=== PATIENT | female | born 1980 | race Caucasian/White ===

== ENCOUNTER 2022-09-11 09:43 | Emergency (ER) | payer OTHER ==
[2022-09-11 09:55] VITALS: BP 113/60; PULSE 75; RESP 16; TEMP 97.8; BMI 42.0
[2022-09-11 11:09] LABS: BASO % 0.3 % (0-2.0); HEMATOCRIT 39.5 % (32.4-45.2); HEMOGLOBIN 13.1 GM/dL (10.7-15.3); MCH 29.7 pg (25.7-33.7); MCHC 33.1 g/dl (32.0-36.0); MEAN CELL VOLUME 89.6 fl (80-96); MEAN PLT VOLUME 8.9 fl (7.5-11.1); MONO % 6.9 % (3.8-10.2); NEUT % 59.8 % (42.8-82.8); PLATELET COUNT 246 10^3/uL (134-434); RBC 4.41 M/mm3 (3.60-5.2); RDW 13.6 % (11.6-15.6); WHITE BLOOD COUNT 6.9 K/mm3 (4.0-10.0)
[2022-09-11 11:11] LABS: EPI CELLS >36 /uL (0-25.1); HYALINE CASTS 0 /uL (0-3.1); URINE APPEARANCE CLEAR; URINE BACTERIA 954 /uL (0-1359); URINE BILIRUBIN NEGATIVE (NEGATIVE); URINE COLOR YELLOW; URINE GLUCOSE (UA) NEGATIVE (NEGATIVE); URINE KETONE NEGATIVE (NEGATIVE); URINE LEUK ESTERASE 2+ (NEGATIVE); URINE NITRITE NEGATIVE (NEGATIVE); URINE PROTEIN NEGATIVE (NEGATIVE); URINE RBC 19 /uL (0-23.9); URINE UROBILINOGEN 0.2 mg/dL (0.2-1.0); URINE WBC 92 /uL (0-25.8)
[2022-09-11 11:53] LABS: POTASSIUM 3.8 mmol/L (3.5-5.1)
[2022-09-11 11:55] LABS: BLOOD UREA NITROGEN 7.7 mg/dL (7-18); CALCIUM 9.3 mg/dL (8.5-10.1)
[2022-09-11 11:56] LABS: ALBUMIN 3.7 g/dl (3.4-5.0)
[2022-09-11 11:58] LABS: BILIRUBIN,DIRECT 0.1 mg/dL (0.0-0.2)
[2022-09-11 11:59] LABS: CREATININE 0.6 mg/dL (0.55-1.3)
[2022-09-11 12:00] LABS: BILIRUBIN,TOTAL 0.6 mg/dL (0.2-1); TOT PROT 7.1 g/dl (6.4-8.2)
[2022-09-11 12:21] LABS: HCG,QUALITATIVE URINE Positive
== END 2022-09-11 14:24 | disposition home or self-care (01) ==
LOC: JER 09:43
DX: O20.9 Hemorrhage in early pregnancy, unspecified (principal); Z3A.01 Less than 8 weeks gestation of pregnancy
CPT/HCPCS: 36415; 76815-TC; 80048; 80076; 81003; 84703; 85025; 86850; 86900; 86901; 87086; 99284-25

== ENCOUNTER 2022-12-06 09:29 | Emergency (ER) | payer OTHER ==
[2022-12-06 09:38] VITALS: BP 135/66; PULSE 82; RESP 20; TEMP 98.1; BMI 43.9
[2022-12-06 11:04] LABS: PH,URINE 7.5 (5.0-8.0); URINE APPEARANCE CLEAR; URINE BILIRUBIN NEGATIVE (NEGATIVE); URINE COLOR YELLOW; URINE GLUCOSE (UA) NEGATIVE (NEGATIVE); URINE KETONE NEGATIVE (NEGATIVE); URINE LEUK ESTERASE NEGATIVE (NEGATIVE); URINE NITRITE NEGATIVE (NEGATIVE); URINE PROTEIN NEGATIVE (NEGATIVE); URINE UROBILINOGEN 0.2 mg/dL (0.2-1.0)
== END 2022-12-06 15:08 | disposition home or self-care (01) ==
LOC: JER 09:29
DX: N89.8 Other specified noninflammatory disorders of vagina (principal)
CPT/HCPCS: 36415; 76815-TC; 81003; 87070; 87086; 87205; 87491; 87591; 87661; 99284-25

== ENCOUNTER 2023-03-16 12:03 | Emergency (ER) | payer OTHER ==
[2023-03-16 12:20] VITALS: BMI 45.4
[2023-03-16 15:41] LABS: BASO % 0.8 % (0-2.0); EOS % 0.7 % (0-4.5); HEMATOCRIT 36.8 % (32.4-45.2); HEMOGLOBIN 12.3 GM/dL (10.7-15.3); LYMPH % 31.5 % (8-40); MCH 29.3 pg (25.7-33.7); MCHC 33.4 g/dl (32.0-36.0); MEAN CELL VOLUME 87.8 fl (80-96); MEAN PLT VOLUME 8.7 fl (7.5-11.1); MONO % 8.3 % (3.8-10.2); NEUT % 58.7 % (42.8-82.8); PLATELET COUNT 252 10^3/uL (134-434); RBC 4.19 M/mm3 (3.60-5.2); RDW 13.5 % (11.6-15.6); WHITE BLOOD COUNT 6.3 K/mm3 (4.0-10.0)
[2023-03-16 15:48] LABS: INR 0.9 (0.83-1.09); PROTHROMBIN TIME (PATIENT) 10.5 SEC (9.7-13.0)
[2023-03-16 15:51] LABS: ACTIVATED PTT 28.1 SECONDS (25.2-36.5)
[2023-03-16 16:22] LABS: URINE APPEARANCE CLOUDY; URINE BILIRUBIN 1+ (NEGATIVE); URINE COLOR DK YELLOW; URINE GLUCOSE (UA) NEGATIVE (NEGATIVE); URINE KETONE NEGATIVE (NEGATIVE); URINE LEUK ESTERASE NEGATIVE (NEGATIVE); URINE NITRITE NEGATIVE (NEGATIVE); URINE PROTEIN TRACE (NEGATIVE)
[2023-03-16 16:23] LABS: POTASSIUM 3.6 mmol/L (3.5-5.1)
[2023-03-16 16:25] LABS: ALBUMIN 2.6 g/dl (3.4-5.0); CALCIUM 8.8 mg/dL (8.5-10.1)
[2023-03-16 16:26] LABS: BLOOD UREA NITROGEN 7.5 mg/dL (7-18)
[2023-03-16 16:28] LABS: CREATININE 0.4 mg/dL (0.55-1.3)
[2023-03-16 16:30] LABS: BILIRUBIN,TOTAL 0.7 mg/dL (0.2-1); TOT PROT 6.4 g/dl (6.4-8.2)
[2023-03-16 23:52] VITALS: BP 115/74; TEMP 97.9
[2023-03-17 02:10] VITALS: PULSE 102; RESP 22
== END 2023-03-17 03:13 | disposition admitted as inpatient to this hospital (09) ==
LOC: JER 12:03 → JERFT 12:03 → JER 03-17 03:13
DX: O26.893 Other specified pregnancy related conditions, third trimester (principal); R06.02 Shortness of breath; R07.2 Precordial pain; R05.1 Acute cough; R09.89 Other specified symptoms and signs involving the circulatory and respiratory systems; O99.713 Diseases of the skin and subcutaneous tissue complicating pregnancy, third trimester; L29.9 Pruritus, unspecified; R30.0 Dysuria; O21.9 Vomiting of pregnancy, unspecified; Z3A.34 34 weeks gestation of pregnancy; Z20.822 Contact with and (suspected) exposure to COVID-19
CPT/HCPCS: 0241U-QW; 36415; 71046-TC-FY; 76705-TC; 80053; 81003; 84484; 85025; 85379; 85610; 85730; 87086; 93005; 93010; 99285-25

== ENCOUNTER 2023-07-24 12:06 | Emergency (ER) | payer OTHER ==
[2023-07-24 12:34] VITALS: BP 145/89; PULSE 88; RESP 18; TEMP 98.4; BMI 44.9
[2023-07-24 13:31] LABS: EPI CELLS 35 /uL (0-25.1); HYALINE CASTS 0 /uL (0-3.1); PH,URINE 7.5 (5.0-8.0); URINE APPEARANCE CLEAR; URINE BACTERIA 304 /uL (0-1359); URINE BILIRUBIN NEGATIVE (NEGATIVE); URINE COLOR YELLOW; URINE GLUCOSE (UA) NEGATIVE (NEGATIVE); URINE KETONE NEGATIVE (NEGATIVE); URINE LEUK ESTERASE 2+ (NEGATIVE); URINE NITRITE NEGATIVE (NEGATIVE); URINE PROTEIN NEGATIVE (NEGATIVE); URINE RBC 30 /uL (0-23.9); URINE WBC 26 /uL (0-25.8)
[2023-07-24 14:01] LABS: HCG,QUALITATIVE URINE Negative
== END 2023-07-24 14:32 | disposition home or self-care (01) ==
LOC: JER 12:06
DX: L29.2 Pruritus vulvae (principal); N93.9 Abnormal uterine and vaginal bleeding, unspecified
CPT/HCPCS: 36415; 81003; 84703; 87491; 87591; 99283-25

== ENCOUNTER 2023-11-13 16:03 | Emergency (ER) | payer OTHER ==
[2023-11-13 16:20] VITALS: BP 133/83; PULSE 100; RESP 19; TEMP 98.2; BMI 41.1
[2023-11-13 18:52] LABS: HIV INTERPRETATION NEGATIVE (NEGATIVE)
[2023-11-13] MEDS ORDERED: KETOROLAC TROMETHAMINE 15 MG/ML VIAL ONE (18:58)
[2023-11-13] MEDS: KETOROLAC TROMETHAMINE 15 MG/ML VIAL IM ONE (19:02)
== END 2023-11-13 20:05 | disposition home or self-care (01) ==
LOC: JER 16:03 → JERFT 16:03
PROC: 3E0133Z Introduction of Anti-inflammatory into Subcutaneous Tissue, Percutaneous Approach (ICD-10-PCS; principal; 2023-11-13)
DX: M25.462 Effusion, left knee (principal); M25.562 Pain in left knee
CPT/HCPCS: 36415; 73562-TC-LT-FY; 84703; 86803; 87389; 99284-25

== ENCOUNTER 2023-12-26 15:41 | Emergency (ER) | payer OTHER ==
[2023-12-26 15:49] VITALS: BP 144/84; PULSE 91; RESP 20; TEMP 97.7; BMI 39.4
[2023-12-26] MEDS ORDERED: IBUPROFEN 600 MG TABLET (FP) PO ONE (18:50)
[2023-12-26] MEDS: IBUPROFEN 600 MG TABLET (FP) PO ONE (19:02)
[2023-12-26] MEDS: PSEUDOEPHEDRINE HCL 60 MG TABLET PO ONE (19:03)
== END 2023-12-26 22:16 | disposition home or self-care (01) ==
LOC: JER 15:41
DX: R51.9 Headache, unspecified (principal); R42 Dizziness and giddiness
CPT/HCPCS: 70450-TC; 84703; 99284-25